=== PATIENT | female | born 1980 | race Caucasian/White ===

== ENCOUNTER 2024-12-17 22:53 | Emergency (ER) | payer OTHER ==
[2024-12-17 23:17] VITALS: BP 128/79; PULSE 69; RESP 17; TEMP 97.5; BMI 20.5
[2024-12-17] MEDS: ACETAMINOPHEN 325 MG TABLET (FP) PO ONE (23:30)
[2024-12-18 01:35] LABS: THROAT:GRP A STREP NOT DETECTED (NOTDETECTED)
== END 2024-12-17 23:57 | disposition home or self-care (01) ==
LOC: FER 22:53
DX: O09.522 Supervision of elderly multigravida, second trimester (principal); O99.512 Diseases of the respiratory system complicating pregnancy, second trimester; J02.9 Acute pharyngitis, unspecified; O99.891 Other specified diseases and conditions complicating pregnancy; H92.01 Otalgia, right ear; Z3A.22 22 weeks gestation of pregnancy
CPT/HCPCS: 0241U-QW; 87651; 99283-25